=== PATIENT | female | born 1950 ===

== ENCOUNTER 2017-06-05 16:51 | Emergency (ER) | payer MEDICAID, MEDICARE ==
[2017-06-05 16:56] VITALS: BP 141/80; PULSE 71; RESP 16; TEMP 97.6; O2SAT 99
--- NOTE | 2017-06-05 17:13 | ED PDOC ---
HPI: Female Pain Time Seen by Provider: 06/05/17 17:01 Chief Complaint (Nursing): Abdominal Pain Chief Complaint (Provider): Burning urination History Per: Patient History/Exam Limitations: no limitations Onset/Duration Of Symptoms: Days (10) Current Symptoms Are (Timing): Still Present Additional Complaint(s): Burning urination, increased freq, urgency. Suprapubic pain. Ongoing for 10 days. Saw pcp who started pt. on amoxicillin. Pt. still has symptoms so stopped it yesterday. Has had similar multiple times in the back and tried many different antibiotics for her urine infections. No flank back pain. No numbness, tingles, weakness, headaches, nasuea, vomit, diarrhea. No chest pain. Feels similar to uti and more pain. No vaginal bleeding. Past Medical History Reviewed: Nursing Documentation, Vital Signs Vital Signs: Last Vital Signs Temp 97.6 F 06/05/17 16:53 Pulse 71 06/05/17 16:53 Resp 16 06/05/17 16:53 BP 141/80 06/05/17 16:53 Pulse Ox 99 06/05/17 16:53 - Medical History Other PMH: uti, htn, chol, abnormal rhythm, fibromyalgia - Surgical History Surgical History: No Surg Hx - Family History Family History: States: Unknown Family Hx - Living Arrangements Living Arrangements: With Family - Social History Current smoker - smoking cessation education provided: No Alcohol: None Drugs: Denies - Home Medications Home Medications: Ambulatory Orders Medication Instructions Recorded Ibuprofen [Motrin] 600 mg PO TID 7 Days 06/05/17 Nitrofurantoin Macrocrystals 100 mg PO BID #10 cap 06/05/17 [Macrobid] Phenazopyridine HCl [Pyridium] 100 mg PO BID PRN 5 Days 06/05/17 - Allergies Allergies/Adverse Reactions: Allergies Allergy/AdvReac Type Severity Reaction Status Date / Time No Known Allergies Allergy Verified 06/05/17 16:53 Review of Systems Constitutional: Negative for: Fever, Weakness Cardiovascular: Negative for: Chest Pain, Edema Respiratory: Negative for: Cough, Shortness of Breath Gastrointestinal: Positive for: Abdominal Pain (suprapubic). Negative for: Nausea, Vomiting Genitourinary Female: Positive for: Dysuria, Frequency. Negative for: Incontinence, Hematuria, Vaginal Discharge, Vaginal Bleeding, Pelvic Pain Musculoskeletal: Negative for: Neck Pain, Shoulder Pain, Arm Pain Skin: Negative for: Rash Neurological: Negative for: Weakness Physical Exam - Reviewed Nursing Documentation Reviewed: Yes Vital Signs Reviewed: Yes - Physical Exam Appears: Positive for: Non-toxic, No Acute Distress Neck: Positive for: Normal, Painless ROM Cardiovascular/Chest: Positive for: Regular Rate, Rhythm Respiratory: Positive for: CNT, Normal Breath Sounds Gastrointestinal/Abdominal: Positive for: Soft, Tenderness (suprapubic; no tender to L or R upper or lower quadrant) Back: Positive for: Normal Inspection. Negative for: L CVA Tenderness, R CVA Tenderness, Muscle Spasm Neurologic/Psych: Positive for: Alert, Oriented - Laboratory Results Urine dip results: Negative for: Leukocyte Esterase, Nitrate - ECG O2 Sat by Pulse Oximetry: 99 Pulse Ox Interpretation: Normal - Progress ED Course And Treament: 1749: Leuk and nit neg, likely from amox. Will change to macrobid. Stable. AAOx3. Pain free. Tolerated PO. Fu with pcp. Disposition - Clinical Impression Clinical Impression: UTI (urinary tract infection) - Patient ED Disposition Is Patient to be Admitted: No Counseled Patient/Family Regarding: Studies Performed, Diagnosis, Need For Followup, Rx Given - Disposition Referrals: [facility] [Outside] - 06/07/17 Disposition: Routine/Home Disposition Time: 17:50 Condition: STABLE Additional Instructions: Return if not better in 3 days. Prescriptions: Ibuprofen [Motrin] 600 mg PO TID 7 Days Nitrofurantoin Macrocrystals [Macrobid] 100 mg PO BID #10 cap Phenazopyridine HCl [Pyridium] 100 mg PO BID PRN 5 Days PRN Reason: Bladder Spasm Instructions: Urinary Tract Infection in Women (ED) Forms: [employer] (Cuban)
[2017-06-05 17:48] LABS: SQUAMOUS EPITHIAL 2 /hpf (0-5); URINE BILIRUBIN NEGATIVE (NEGATIVE); URINE BLOOD SMALL (NEGATIVE); URINE CLARITY SLIGHTY-CLOUDY (Clear); URINE COLOR YELLOW (YELLOW); URINE GLUCOSE (UA) NEG (Normal); URINE LEUKOCYTE ESTERASE NEG Leu/uL (Negative); URINE NITRATE NEGATIVE (NEGATIVE); URINE PROTEIN NEGATIVE (NEGATIVE); URINE UROBILINOGEN 0.2-1.0 mg/dL (0.2-1.0)
== END 2017-06-05 18:16 | disposition home or self-care (01) ==
LOC: H.ER 16:51
DX: N39.0 Urinary tract infection, site not specified (principal); I10 Essential (primary) hypertension; M79.7 Fibromyalgia